=== PATIENT | female | born 1990 | race Caucasian/White ===

== ENCOUNTER 2020-01-10 08:59 | Emergency (ER) | payer MEDICAID ==
[~2020-01-10] VITALS: Ht 170.2 cm; Wt 72.0 kg
[2020-01-10] MEDS ORDERED: ONDANSETRON PF 4 MG/2 ML VIAL. IVP ONE (09:15)
--- NOTE | 2020-01-10 09:22 | PHYS DOC ---
Past History Past Medical History: Hypothyroid, Ovarian Cyst, P.I.D. Past Surgical History: Other Additional Past Surgical Histo: IUD SURGERICAL REMOVAL Alcohol Use: None General Adult EDM: Chief Complaint: ABDOMINAL PAIN HPI: HPI: Patient is a 29-year-old female who presents with 1 week of right lower quadrant pain. Patient states the pain is more severe over the last 3 days. Patient describes this pain as a fullness 6 out of 10 in maximum severity. Pain is worse with palpation and certain movements. Patient has had some nausea but no significant vomiting. Patient denies dysuria or vaginal bleeding. Patient's last menstrual period was 6 weeks ago. Patient denies any fevers, chills, cough or shortness of breath or known COVID-19 exposures. Review of Systems: Review of Systems: Constitutional: Denies fever or chills Eyes: Denies change in visual acuity HENT: Denies nasal congestion or sore throat Respiratory: Denies cough or shortness of breath Cardiovascular: Denies chest pain or edema GI: Complains abdominal pain and nausea but no diarrhea or blood in her stools : Denies dysuria Musculoskeletal: Denies back pain or joint pain Integument: Denies rash Neurologic: Denies headache, focal weakness or sensory changes Endocrine: Denies polyuria or polydipsia Lymphatic: Denies swollen glands Psychiatric: Denies depression or anxiety Current Medications: Current Meds: Current Medications Medications (Trade) Dose Ordered Sig/Daquan Start Time Stop Time Status Last Admin Dose Admin Ondansetron HCl (Zofran) 4 mg 1X ONCE 01/10/20 09:15 01/10/20 09:16 DC Allergies: Allergies: Allergies Coded Allergies Type Severity Reaction Last Updated Verified tramadol Allergy Unknown 01/10/20 Yes Physical Exam: PE: Constitutional: Well developed, well nourished, no acute distress, non-toxic appearance. [] HENT: Normocephalic, atraumatic, bilateral external ears normal, no trismus nose normal. [] Eyes: PERRLA, EOMI, conjunctiva normal, no discharge. [] Neck: Normal range of motion, no tenderness, supple, no stridor. [] Cardiovascular:Heart rate regular rhythm, cap refills less than 2 seconds Lungs & Thorax: Bilateral breath sounds clear, no respiratory distress Abdomen: Soft with very minimal right lower quadrant tenderness without guarding or rebound no masses, no pulsatile masses. [] Skin: Warm, dry, no erythema, no rash. [] Back: No tenderness, no CVA tenderness. [] Extremities: No tenderness, no cyanosis, no clubbing, ROM intact, no edema. [] Neurologic: Alert and oriented X 3, normal motor function, normal sensory function, no focal deficits noted. [] Psychologic: Affect normal, judgement normal, mood normal. [] Current Patient Data: Labs: Laboratory Tests Test 01/10/20 09:16 01/10/20 09:25 01/10/20 09:26 Urine Collection Type Unknown Urine Color Yellow Urine Clarity Clear Urine pH 6.5 Urine Specific [place] 1.025 Urine Protein Neg Urine Glucose (UA) Neg mg/dL Urine Ketones (Stick) Neg mg/dL Urine Blood Neg Urine Nitrite Neg Urine Bilirubin Neg Urine Urobilinogen Dipstick 0.2 mg/dL Urine Leukocyte Esterase Neg Urine RBC 0 /HPF Urine WBC 0 /HPF Urine Squamous Epithelial Cells Occ /LPF Urine Bacteria 0 /HPF White Blood Count 6.5 x10^3/uL Red Blood Count 4.48 x10^6/uL Hemoglobin 13.7 g/dL Hematocrit 42.2 % Mean Corpuscular Volume 94 fL Mean Corpuscular Hemoglobin 31 pg Mean Corpuscular Hemoglobin Concent 33 g/dL Red Cell Distribution Width 13.9 % Platelet Count 295 x10^3/uL Neutrophils (%) (Auto) 68 % Lymphocytes (%) (Auto) 24 % Monocytes (%) (Auto) 6 % Eosinophils (%) (Auto) 1 % Basophils (%) (Auto) 0 % Neutrophils # (Auto) 4.4 x10^3uL Lymphocytes # (Auto) 1.6 x10^3/uL Monocytes # (Auto) 0.4 x10^3/uL Eosinophils # (Auto) 0.1 x10^3/uL Basophils # (Auto) 0.0 x10^3/uL Maternal Serum HCG Beta Subunit 19302 mIU/mL Sodium Level 138 mmol/L Potassium Level 3.4 mmol/L Chloride Level 101 mmol/L Carbon Dioxide Level 24 mmol/L Anion Gap 13 Blood Urea Nitrogen 9 mg/dL Creatinine 0.9 mg/dL Estimated GFR (Cockcroft-Gault) 73.5 BUN/Creatinine Ratio 10 Glucose Level 141 mg/dL Calcium Level 9.0 mg/dL Total Bilirubin 0.2 mg/dL Aspartate Amino Transf (AST/SGOT) 18 U/L Alanine Aminotransferase (ALT/SGPT) 17 U/L Alkaline Phosphatase 46 U/L Total Protein 7.8 g/dL Albumin 4.1 g/dL Albumin/Globulin Ratio 1.1 Lipase 104 U/L Bedside Urine HCG, Qualitative hcg positive Current Medications Medications (Trade) Dose Ordered Sig/Daquan Route PRN Reason Start Time Stop Time Status Last Admin Dose Admin Ondansetron HCl (Zofran) 4 mg 1X ONCE IVP 01/10/20 09:15 01/10/20 09:16 DC 01/10/20 09:33 Vital Signs: Vital Signs Date Time Temp Pulse Resp B/P (MAP) Pulse Ox O2 Delivery O2 Flow Rate FiO2 01/10/20 09:11 98.0 102 18 137/93 (108) 100 Room Air EKG: EKG: [] Radiology/Procedures: Radiology/Procedures: [][address] [address] IMAGING REPORT Signed PATIENT: EMBER GRANADOSCOUNT: [id number] : 1990 LOCATION: ER AGE: 29 SEX: F EXAM STATUS: REG ER ORD. PHYSICIAN: CLAUDIA STEVENSON MD REASON: rlq pain, lmp 10/10 PROCEDURE: OB <14 WKS INDICATION: Reason: rlq pain, lmp 10/ / Spl. Instructions: / History: COMPARISON: None. TECHNIQUE: Grayscale and color ultrasound images uterus and adnexa. FINDINGS: Uterus: 91 x 79 x 54 mm. Intrauterine gestational sac is identified with a pole with a crown-rump length of 5 mm and heart beat of 108. The cervix measures 27 mm. Right Ovary: 44 x 34 x 24 mm. Left Ovary: 28 x 28 x 17 mm. Vascular flow identified to bilateral ovaries. 23 x 22 x 18 mm right ovarian follicle/small cyst. IMPRESSION: * Intrauterine is identified with estimated gestational age of 6 weeks and 2 days with estimated due date of 09/02/2020. The heartbeat is 108 which is borderline. Continued follow-up could be obtained to ensure appropriate development. * Dominant follicle or small cyst of the right ovary. Electronically signed by: Stephanie Redmond MD (01/10/2020 9:49 AM) [id number] DICTATED AND SIGNED BY: STEPHANIE REDMODN MD DATE: 01/10/20 0949 CC: CLAUDIA STEVENSON MD; PCP,NO ~MTH0 0 Heart Score: Risk Factors: Risk Factors: DM, Current or recent (<one month) smoker, HTN, HLP, family history of CAD, obesity. Risk Scores: Score 0 - 3: 2.5% MACE over next 6 weeks - Discharge Home Score 4 - 6: 20.3% MACE over next 6 weeks - Admit for Clinical Observation Score 7 - 10: 72.7% MACE over next 6 weeks - Early Invasive Strategies Course & Med Decision Making: Course & Med Decision Making Pertinent Labs and Imaging studies reviewed. (See chart for details) [] 29-year-old female presents with right lower quadrant pain. Patient's last menstrual period was 6 weeks ago. Patient has a positive test and Iup confirmed . Patient has a cyst or corpus luteum cyst on the right ovary that is most likely the etiology of her pain. Patient is stable in the ER and in no significant discomfort on reassessment. Patient stable for discharge and outpatient follow-up with [facility]. Dragon Disclaimer: Dragon Disclaimer: This electronic medical record was generated, in whole or in part, using a voice recognition dictation system. Departure Departure: Impression: Primary Impression: First trimester Additional Impressions: Threatened miscarriage Right lower quadrant pain Disposition: 01 DC HOME SELF CARE/HOMELESS Condition: STABLE Referrals: PCP,NO (PCP) MADAN GRAF MD 2-3 days Patient Instructions: Abdominal Pain During , Threatened Miscarriage Additional Instructions: EMERGENCY DEPARTMENT GENERAL DISCHARGE INSTRUCTIONS THANK YOU for coming to [facility] Emergency Department (ED) today and trusting us with your care. We trust that you had a positive experience in our Emergency Department. If you wish to speak to the department Management you can contact the emergency department at YOUR FOLLOW UP INSTRUCTIONS ARE FOLLOWS: Do you have a private doctor? If you do not have a private doctor, please ask for a resource list of physicians or clinics that may be able to assist you with follow up care. The Emergency Physician has interpreted your x-rays. The X-ray specialist will also review them. If there is a change in the findings you will be notified in 48 hours when at all possible. A lab test or lab culture may have been done, your results will be reviewed and you will be notified if you need a change in treatment. ADDITIONAL INSTRUCTIONS AND INFORMATION Your care today has been supervised by a physician who is specially trained in emergency care. Many problems require more than one evaluation for a complete diagnosis and treatment. We recommend that you schedule your follow up appointment as recommended to ensure complete treatment of your illness or injury. If you are unable to obtain follow up care and continue to have a problem, or if your condition worsens we recommend that you return to the ED. We are not able to safely determine your condition over the phone nor are we able to give sound medical advice over the phone. For these safety reasons, if you call for medical advice we will ask you to come to the ED for further evaluation If you have any questions regarding these discharge instructions please call the ED at . SAFETY INFORMATION In the interest of safety, wellness, and injury prevention; we encourage you to wear your seatbelt, if you smoke; quit smoking, and we encourage your family to use protective helmet for bicycling and other sporting events that present an increased risk for head injury. IF YOUR SYMPTOMS WORSEN OR NEW SYMPTOMS DEVELOP, OR YOU HAVE CONCERNS ABOUT YOUR CONDITION; OR IF YOUR CONDITION WORSENS WHILE YOU ARE WAITING FOR YOUR FOLLOW UP APPOINTME NT; EITHER CONTACT YOUR PRIMARY CARE DOCTOR, THE PHYSICIAN WHOSE NAME AND NUMBER YOU WERE GIVEN, OR RETURN TO THE ED IMMEDIATELY. CLAUDIA STEVENSON MD Jan 10, 2020 09:22
[2020-01-10 09:49] LABS: BASO % 0 % (0-3); EOS # 0.1 x10^3/uL (0.0-0.7); EOS % 1 % (0-3); HEMATOCRIT 42.2 % (36.0-47.0); HEMOGLOBIN 13.7 g/dL (12.0-15.5); LYMPH # 1.6 x10^3/uL (1.0-4.8); LYMPH % 24 % (24-48); MEAN CORPUSCULAR HEMOGLOBIN 31 pg (25-35); MEAN CORPUSCULAR HGB CONC 33 g/dL (31-37); MEAN CORPUSCULAR VOLUME 94 fL (79-100); MONO # 0.4 x10^3/uL (0.0-1.1); MONO % 6 % (0-9); NEUT # 4.4 x10^3uL (1.8-7.7); NEUT % 68 % (31-73); PLATELET COUNT 295 x10^3/uL (140-400); RED BLOOD COUNT 4.48 x10^6/uL (3.50-5.40); RED CELL DISTRIBUTION WIDTH 13.9 % (11.5-14.5); WHITE BLOOD COUNT 6.5 x10^3/uL (4.0-11.0)
[2020-01-10 09:51] LABS: CREATININE 0.9 mg/dL (0.6-1.0); GFR 73.5; POTASSIUM 3.4 mmol/L (3.5-5.1)
--- NOTE | 2020-01-10 09:52 | RAD ---
INDICATION: Reason: rlq pain, lmp 11/26 / . Instructions: / History: COMPARISON: None. TECHNIQUE: Grayscale and color ultrasound images uterus and adnexa. FINDINGS: Uterus: 91 x 79 x 54 mm. Intrauterine gestational sac is identified with a pole with a crown-rump length of 5 mm and heart beat of 108. The cervix measures 27 mm. Right Ovary: 44 x 34 x 24 mm. Left Ovary: 28 x 28 x 17 mm. Vascular flow identified to bilateral ovaries. 23 x 22 x 18 mm right ovarian follicle/small cyst. IMPRESSION: * Intrauterine is identified with estimated gestational age of 6 weeks and 2 days with estimated due date of 09/02/2020. The heartbeat is 108 which is borderline. Continued follow-up could be obtained to ensure appropriate development. * Dominant follicle or small cyst of the right ovary. Electronically signed by: Lawrence Lepe MD (01/10/2020 9:49 AM) [id number]
[2020-01-10 09:57] LABS: ALBUMIN 4.1 g/dL (3.4-5.0); ALBUMIN/GLOBULIN RATIO 1.1 (1.0-1.7); TOTAL BILIRUBIN 0.2 mg/dL (0.2-1.0); TOTAL PROTEIN 7.8 g/dL (6.4-8.2)
[2020-01-10 10:00] LABS: BACTERIA,URINE 0 /HPF (0-FEW); BILIRUBIN,URINE NEG (NEG); CLARITY,URINE CLEAR; COLOR,URINE YELLOW; GLUCOSE,URINE NEG (NEG); NITRITE,URINE NEG (NEG); RBC,URINE 0 /HPF (0-2); SQUAMOUS EPITHELIAL CELL,UR OCC /LPF; UROBILINOGEN,URINE 0.2 mg/dL (0.2 mg/dL); WBC,URINE 0 /HPF (0-4)
[2020-01-10 11:00] VITALS: BP 109/69
== END 2020-01-10 11:14 | disposition home or self-care (01) ==
LOC: ER 08:59 → EDSEX 08:59 → ER 11:14
DX: O20.0 Threatened abortion (principal); Z3A.01 Less than 8 weeks gestation of pregnancy; Z88.6 Allergy status to analgesic agent
CPT/HCPCS: 36415; 76801; 80053; 81001; 81025; 83690; 84702; 85025; 96374; 99284; J2405

== ENCOUNTER 2020-01-25 00:30 | Emergency (ER) | payer MEDICAID ==
[~2020-01-25] VITALS: Ht 170.2 cm; Wt 72.0 kg
[2020-01-25 00:30] VITALS: BP 133/80
--- NOTE | 2020-01-25 00:57 | PHYS DOC ---
Past History Past Medical History: Hypothyroid, Ovarian Cyst, P.I.D. Past Surgical History: Other Additional Past Surgical Histo: IUD SURGERICAL REMOVAL Alcohol Use: None General Adult HPI: HPI: History obtained from patient. Patient is a 29 old female estimated 8 weeks who presents with chief complaint of concern of exposure to STD. States her sexual partner tested positive for Covid you 2 days ago. She denies any symptoms. Denies abdominal pain. Denies syncope. Denies vaginal bleeding. Denies concerning vaginal discharge. Denies dysuria, hematuria. Denies back pain. States she has no symptoms and just wants to be tested and treated for chlamydia. No other complaints. Review of Systems: Review of Systems: Constitutional: Denies fever or chills Eyes: Denies change in visual acuity HENT: Denies nasal congestion or sore throat Respiratory: Denies cough or shortness of breath Cardiovascular: Denies chest pain or edema GI: Denies abdominal pain, nausea, vomiting, bloody stools or diarrhea : Denies dysuria Musculoskeletal: Denies back pain or joint pain Integument: Denies rash Neurologic: Denies headache, focal weakness or sensory changes Endocrine: Denies polyuria or polydipsia Lymphatic: Denies swollen glands Psychiatric: Denies depression or anxiety Allergies: Allergies: Allergies Coded Allergies Type Severity Reaction Last Updated Verified tramadol Allergy Unknown 01/10/20 Yes Physical Exam: PE: Constitutional: Well developed, well nourished, no acute distress, non-toxic appearance. [] HENT: Normocephalic, atraumatic, bilateral external ears normal, oropharynx moist, no oral exudates, nose normal. [] Eyes: PERRLA, EOMI, conjunctiva normal, no discharge. [] Neck: Normal range of motion, no tenderness, supple, no stridor. [] Cardiovascular:Heart rate regular rhythm, no murmur [] Lungs & Thorax: Bilateral breath sounds clear to auscultation [] Abdomen: soft, no tenderness, no masses, no pulsatile masses. [] Skin: Warm, dry, no erythema, no rash. [] Back: No tenderness, no CVA tenderness. [] Extremities: No tenderness, no cyanosis, no clubbing, ROM intact, no edema. [] Neurologic: Alert and oriented X 3, normal motor function, normal sensory function, no focal deficits noted. [] Psychologic: Affect normal, judgement normal, mood normal. [] EKG: EKG: [] Radiology/Procedures: Radiology/Procedures: [] Heart Score: Risk Factors: Risk Factors: DM, Current or recent (<one month) smoker, HTN, HLP, family history of CAD, obesity. Risk Scores: Score 0 - 3: 2.5% MACE over next 6 weeks - Discharge Home Score 4 - 6: 20.3% MACE over next 6 weeks - Admit for Clinical Observation Score 7 - 10: 72.7% MACE over next 6 weeks - Early Invasive Strategies Course & Med Decision Making: Course & Med Decision Making Pertinent Labs and Imaging studies reviewed. (See chart for details) [] Patient is a well-appearing 29-year-old female estimated gestational age of 8 weeks. Ultrasound imaging on January 09 at our facility does confirm intrauterine . Given she has no symptoms repeat imaging and advanced laboratory Naus will be deferred. Furthermore pelvic exam be deferred as she is asymptomatic. She will be treated prophylactically with Rocephin azithromycin. Gonorrhea and Chlamydia cultures via urine sample are currently pending. She was instructed to follow-up with her primary care physician and [employer] within the next 2 days. Return precautions discussed and understood. She will be notified of positive results. Stable for discharge home. Donna Disclaimer: Donna Disclaimer: This electronic medical record was generated, in whole or in part, using a voice recognition dictation system. Departure Departure: Impression: Primary Impression: Exposure to STD Disposition: 01 DC HOME SELF CARE/HOMELESS Condition: STABLE Referrals: PCP,BIANCA (PCP) PRINCE ALICEA MD Patient Instructions: Sexuality and Disability Additional Instructions: Please follow-up with your primary care physician in the next 2 to 3 days. YUMIKO MARCELO DO Jan 25, 2020 00:57
[2020-01-25] MEDS ORDERED: cefTRIAXone IM 250 MG VIAL IM ONE (01:30)
[2020-01-25] MEDS ORDERED: AZITHROMYCIN 250 MG TABLET. PO ONE (01:30)
== END 2020-01-25 01:07 ==
LOC: ER 00:30
DX: O26.891 Other specified pregnancy related conditions, first trimester (principal); N83.209 Unspecified ovarian cyst, unspecified side; Z20.2 Contact with and (suspected) exposure to infections with a predominantly sexual mode of transmission; Z3A.01 Less than 8 weeks gestation of pregnancy
CPT/HCPCS: 36415; 81025; 87491; 87591; 96372; 99283; J0456; J0696